=== PATIENT | female | born 1990 | race Caucasian/White ===

== ENCOUNTER 2021-11-23 15:42 | Emergency (ER) | payer OTHER ==
[~2021-11-23 15:42] MED LIST: AMLODIPINE BESY10 MG PO
[2021-11-23] MEDS ORDERED: HYDROCODON-ACE1 EAC4 PO (17:10)
== END 2021-11-23 17:48 | disposition home or self-care (01) ==
LOC: ER1 15:42
DX: S86.912A Strain of unspecified muscle(s) and tendon(s) at lower leg level, left leg, initial encounter (principal); X50.9XXA Other and unspecified overexertion or strenuous movements or postures, initial encounter; Y92.830 Public park as the place of occurrence of the external cause; Y93.44 Activity, trampolining
CPT/HCPCS: 29530; 73564; 99283

== ENCOUNTER → 2021-12-11 | Outpatient (CLI) | payer OTHER ==
[~2021-12-11] MED LIST changes: +HYDROCODON-ACE1 EAC4 PO
== END ==
LOC: KOH-I 15:48
DX: M23.92 Unspecified internal derangement of left knee (principal); S82.142A Displaced bicondylar fracture of left tibia, initial encounter for closed fracture; S83.92XA Sprain of unspecified site of left knee, initial encounter
CPT/HCPCS: 73721